=== PATIENT | female | born 1955 | race Caucasian/White ===

== ENCOUNTER → 2017-08-04 | Outpatient (CLI) | payer OTHER ==
[~2017-08-04] MED LIST: ACETAMINOPHEN-1 EAC1 PO; AUGMENTIN 875875 MG PO; CELEBREX 200 M200 M1 PO; CULTURELLE1 EACH PO; GENTAMICIN 0.1%15 G2 TOP; KEFLEX500 MG PO; METHIMAZOLE10 MG PO; PEPCID20 MG PO; PREDNISONE 5 MG5 M1 PO; PRINIVIL20 MG PO; SANTYL OINTMENT30 G1 TP; TUMS PO; TYLENOL325 MG PO
== END ==
LOC: HYPER 06:30
DX: L89.894 Pressure ulcer of other site, stage 4 (principal); L89.623 Pressure ulcer of left heel, stage 3; L89.512 Pressure ulcer of right ankle, stage 2; L89.892 Pressure ulcer of other site, stage 2; M05.49 Rheumatoid myopathy with rheumatoid arthritis of multiple sites; K21.9 Gastro-esophageal reflux disease without esophagitis; F17.210 Nicotine dependence, cigarettes, uncomplicated; Z89.521 Acquired absence of right knee; Z89.522 Acquired absence of left knee; L84 Corns and callosities

== ENCOUNTER → 2017-09-06 | Outpatient (CLI) | payer OTHER | LOC: HYPER 08-30 11:42 | DX: T87.89 Other complications of amputation stump (principal); L89.324 Pressure ulcer of left buttock, stage 4; L89.893 Pressure ulcer of other site, stage 3; L89.613 Pressure ulcer of right heel, stage 3; L89.623 Pressure ulcer of left heel, stage 3; L89.512 Pressure ulcer of right ankle, stage 2; L84 Corns and callosities; M05.49 Rheumatoid myopathy with rheumatoid arthritis of multiple sites; K21.9 Gastro-esophageal reflux disease without esophagitis; F17.210 Nicotine dependence, cigarettes, uncomplicated; Z96.653 Presence of artificial knee joint, bilateral; Y83.5 Amputation of limb(s) as the cause of abnormal reaction of the patient, or of later complication, without mention of misadventure at the time of the procedure ==

== ENCOUNTER → 2017-10-12 | Outpatient (CLI) | payer OTHER | LOC: HYPER 10-04 06:58 | DX: T87.89 Other complications of amputation stump (principal); L89.512 Pressure ulcer of right ankle, stage 2; L89.613 Pressure ulcer of right heel, stage 3; L89.324 Pressure ulcer of left buttock, stage 4; L89.893 Pressure ulcer of other site, stage 3; L84 Corns and callosities; M05.49 Rheumatoid myopathy with rheumatoid arthritis of multiple sites; K21.9 Gastro-esophageal reflux disease without esophagitis; F17.210 Nicotine dependence, cigarettes, uncomplicated; Z96.653 Presence of artificial knee joint, bilateral; Y83.5 Amputation of limb(s) as the cause of abnormal reaction of the patient, or of later complication, without mention of misadventure at the time of the procedure ==

== ENCOUNTER → 2017-11-08 | Outpatient (CLI) | payer OTHER | LOC: HYPER 07:05 | DX: T87.89 Other complications of amputation stump (principal); L89.324 Pressure ulcer of left buttock, stage 4; L89.512 Pressure ulcer of right ankle, stage 2; L89.613 Pressure ulcer of right heel, stage 3; L84 Corns and callosities; M05.49 Rheumatoid myopathy with rheumatoid arthritis of multiple sites; K21.9 Gastro-esophageal reflux disease without esophagitis; F17.210 Nicotine dependence, cigarettes, uncomplicated; Z96.653 Presence of artificial knee joint, bilateral; Y83.5 Amputation of limb(s) as the cause of abnormal reaction of the patient, or of later complication, without mention of misadventure at the time of the procedure ==

== ENCOUNTER → 2017-12-20 | Outpatient (CLI) | payer OTHER | LOC: HYPER 07:01 | DX: L89.613 Pressure ulcer of right heel, stage 3 (principal); L89.512 Pressure ulcer of right ankle, stage 2; L89.893 Pressure ulcer of other site, stage 3; M05.49 Rheumatoid myopathy with rheumatoid arthritis of multiple sites; K21.9 Gastro-esophageal reflux disease without esophagitis; F17.210 Nicotine dependence, cigarettes, uncomplicated ==

== ENCOUNTER → 2020-02-11 | Outpatient (CLI) | payer OTHER | LOC: HYPER 13:21 | PROVIDERS: ATTEND Emergency Medicine | DX: T84.093D Other mechanical complication of internal left knee prosthesis, subsequent encounter (principal); L89.324 Pressure ulcer of left buttock, stage 4; L89.893 Pressure ulcer of other site, stage 3; S81.012D Laceration without foreign body, left knee, subsequent encounter; E66.9 Obesity, unspecified; I10 Essential (primary) hypertension; K21.9 Gastro-esophageal reflux disease without esophagitis; M86.8X7 Other osteomyelitis, ankle and foot; M05.49 Rheumatoid myopathy with rheumatoid arthritis of multiple sites; M81.0 Age-related osteoporosis without current pathological fracture; F17.210 Nicotine dependence, cigarettes, uncomplicated; Z96.653 Presence of artificial knee joint, bilateral; Z68.41 Body mass index [BMI] 40.0-44.9, adult; X58.XXXD Exposure to other specified factors, subsequent encounter ==